=== PATIENT | male | born 1975 | race American Indian/Alaskan Native ===

== ENCOUNTER 2020-12-06 06:32 | Day surgery (SDC) | payer BC, OTHER ==
[2020-12-06] MEDS ORDERED: SODIUM CHLORIDE 0.9% 500 ML 500 ML IV SCH (07:00)
[2020-12-06 07:21] LABS: Basophils # (Auto) 0.1 K/mm3 (0.0-0.1); Basophils % (Auto) 1.2 % (0.0-1.8); Eosinophils # (Auto) 0.1 K/mm3 (0.0-0.4); Eosinophils % (Auto) 1.3 % (0.0-4.3); Hematocrit 42.6 % (35.5-45.6); Hemoglobin 14.6 gm/dl (11.8-15.2); Lymphocytes # (Auto) 1.9 K/mm3 (1.2-5.4); Lymphocytes % (Auto) 18.7 % (13.4-35.0); Mean Corpuscular HGB Conc 34 % (32-34); Mean Corpuscular Volume 77 fl (84-94); Monocytes # (Auto) 0.7 K/mm3 (0.0-0.8); Monocytes % (Auto) 6.6 % (0.0-7.3); Platelet Count 270 K/mm3 (140-440); Red Blood Count 5.52 M/mm3 (3.65-5.03); Red Cell Distribution Width 15.6 % (13.2-15.2)
[2020-12-06 07:30] LABS: INR 0.97 (0.87-1.13)
[2020-12-06 07:31] LABS: Partial Thromboplastin Time 31.4 Sec. (24.2-36.6)
[2020-12-06 07:32] LABS: BUN/Creatinine Ratio 12; Blood Urea Nitrogen 12 mg/dL (9-20); Calcium 9.4 mg/dL (8.4-10.2); Hemolysis Index 1
[2020-12-06] MEDS ORDERED: ASPIRIN EC 325 MG TAB PO SCH (08:00)
[2020-12-06] MEDS ORDERED: HEPARIN/NS 5000 UNIT/500ML 1,000 ML IR ONE (08:27)
[2020-12-06] MEDS ORDERED: MIDAZOLAM 2 MG/2 ML INJ ONE (08:27)
[2020-12-06] MEDS ORDERED: NITROGLYCERIN SYRINGE 3 ML ONE (08:28)
[2020-12-06] MEDS ORDERED: VERAPAMIL 5 MG/2 ML INJ ONE (08:28)
[2020-12-06] MEDS ORDERED: fentaNYL 100 MCG/2 ML INJ ONE (08:28)
[2020-12-06] MEDS ORDERED: HEPARIN 10,000 UNITS/10 ML VIAL ONE (08:29)
[2020-12-06] MEDS ORDERED: LIDOCAINE (1%) 10 MG/1 ML VIAL 20 ML MDV ONE (08:30)
[2020-12-06] MEDS ORDERED: LIDOCAINE (2%) 20 MG/1 ML VIAL 20 ML MDV INFILTRATI ONE (08:44)
--- NOTE | 2020-12-06 08:54 | Short Stay Summary ---
Short Stay Documentation Date of service: 12/06/20 - History Principal diagnosis: Chest Pain H&P: obtained from office Past Medical History: diabetes, hypertension, hyperlipidemia Past Surgical History: no valve replacement, no CABG, no PTCA Social history: no smoking, no alcohol abuse - Allergies and Medications Current Medications: Allergies Penicillins Allergy (Verified 12/06/20 06:53) Shortness of Breath Home Medications Medication Instructions Recorded Confirmed Last Taken Type AtorvaSTATin [Lipitor] 40 mg PO HS 12/06/20 12/06/20 12/04/20 History 40 mg Furosemide [Lasix] 40 mg PO DAILY 12/06/20 12/06/20 12/04/20 History 40 mg Meloxicam [Mobic] 15 mg PO Q48HR 12/06/20 12/06/20 12/03/20 History 15 mg Metformin HCl [Glucophage Xr] 500 mg PO BID 12/06/20 12/06/20 12/04/20 History 500 mg Semaglutide [Ozempic] 1.5 ml SQ QWEEK 12/06/20 12/06/20 11/28/20 History 1.5ml Terbinafine HCl [LamiSIL] 250 mg PO DAILY 12/06/20 12/06/20 12/04/20 History 250 mg amLODIPine 10 mg PO DAILY 12/06/20 12/06/20 12/04/20 History 10 mg carvediloL [Coreg] 12.5 mg PO BID 12/06/20 12/06/20 12/04/20 History 12.5mg lisinopriL [Lisinopril] 10 mg PO DAILY 12/06/20 12/06/20 12/04/20 History 10 mg tiZANidine [Zanaflex 4mg TAB] 4 mg PO DAILY 12/06/20 12/06/20 12/04/20 History 4 mg Active Medications Aspirin (Aspirin Ec 325 Mg Tab) 325 mg PO ONCE IRENE Stop: 12/06/20 16:00 Last Admin: 12/06/20 07:33 Dose: 325 mg Documented by: Sodium Chloride (Nacl 0.9% 500 Ml) 500 mls @ 50 mls/hr IV DIRECT IRENE Stop: 12/06/20 16:59 Last Admin: 12/06/20 07:48 Dose: 50 mls/hr Documented by: - Physical exam General appearance: no acute distress Integumentary: no rash, other (R radial site - clean/dry/intact, no evidence of bleeding or hematoma) HEENT: Atraumatic, EOMI Lungs: Clear to auscultation Heart: Regular rate, Normal S1, Normal S2, No murmurs Gastrointestinal: normal Extremities: no ischemia, pulses intact, No edema Neurological: Normal speech, Normal tone, Sensation intact - Brief post op/procedure progress note Date of procedure: 12/06/20 Pre-op diagnosis: Chest Pain Post-op diagnosis: other (Normal Coronary Arteries) Surgeon: YASH OSORIO Estimated blood loss: minimal Pathology: none Condition: stable - Hospital course Hospital course: Pt presented today for elective LHC, which revealed no angiographic evidence of significant epicardial coronary artery disease, LVEF 55-60%, normal LVEDP, no evidence of , normal root aortography. Pt tolerated procedure well. Currently stable with no complaints. Recommend primary and secondary risk factor modification. Follow-up with Dr. Lopez in 1-2 weeks ([phone]). - Disposition Condition at discharge: Good - Discharge Diagnoses (1) Normal coronary arteries Status: Acute Short Stay Discharge Plan Activity: advance as tolerated Diet: low fat, low cholesterol, diabetic Wound: open to air, keep clean and dry, per your surgeon's advice Special Instructions: hold Metformin (x 48 hrs) Additional Instructions: HOLD METFORMIN FOR 48 HOURS FOLLOWING HEART CATH. RESUME ON 12/08/2020. Follow up with: SONALI LOPEZ MD [Staff Physician] - 14 Days Forms: CardCath PCI D/C Instructions
[2020-12-06] MEDS ORDERED: traMADol 50 MG TAB PO PRN (09:31)
[2020-12-06] MEDS ORDERED: HYDROcodone/ACETAMINOPHEN 5-325 MG TAB PO PRN (10:00)
--- NOTE | 2020-12-06 10:21 | Cardiac Catherization Report ---
DATE OF PROCEDURE: 12/06/2020 REFERRING PHYSICIAN: Dr. Huerta. INDICATIONS FOR PROCEDURE: The patient is a very pleasant 45-year-old -[place] gentleman with multiple risk factors, chest pain with typical and atypical features, abnormal stress test, referred for left heart catheterization. Risks, benefits and alternatives explained at length prior to obtaining informed consent. DESCRIPTION OF PROCEDURE: The patient was brought to blood and plasma laboratory assistant in a postabsorptive state, prepped and draped in sterile fashion. Wellington's test in right hand was normal. A 2 mL of 2% lidocaine used to anesthetize the right wrist. A standard 6-Yi hydrophilic sheath used to cannulate the right radial artery via modified Seldinger technique. All exchanges performed to exchange a J-tip guidewire. JL3.5 catheter used to engage the left main. No dampening or ventricularization. Cineangiography performed in multiple projections. JR4 catheter used to cross the aortic valve under fluoroscopic guidance. Left ventriculography performed in 30-degree LEON, 30-degree MAURITIAN projections via hand injections, catheter flushed. Manual pullback performed with continuous pressure monitoring. Catheter was used to engage the right coronary. No dampening or ventricularization. Cineangiography performed in all projections. Due to unremarkable coronaries, hypertension and recurrent chest pain, root aortography was performed with a pigtail catheter and power injection in the MAURITIAN projection. Next, catheter removed from the body of wire, sheath removed. Manual pressure used to achieve hemostasis. I directly supervised the administration of moderate sedation with fentanyl and Versed from 8:55 a.m. to 9:21 a.m. There were no immediate complications. FINDINGS: The patient remained in normal sinus rhythm throughout the procedure. Aortic pressure is 120/80, LV pressure is 120, LVEDP of 15 mmHg. Left ventriculography reveals normal systolic performance, estimated ejection fraction of 55-60%. No evidence of aortic stenosis. CORONARY ANATOMY: This is a left dominant system. Right coronary small, nondominant, no significant disease. Left main is short. No significant disease. Left main bifurcates into left anterior descending and left circumflex. LAD is a moderate sized vessel, courses anterior intergroove, wraps around the apex. No significant disease. Scattered luminal irregularities. ALEXIS 3 flow. Left circumflex, moderate sized vessel, courses AV groove, gives off a left PDA. No significant disease. ALEXIS 3 flow. Root aortography reveals normal contour, no evidence of dissection or penetrating aortic ulcer. No aortic insufficiency. Normal great vessel anatomy. CONCLUSIONS: 1. No angiographic evidence of significant epicardial coronary artery disease in this left dominant system. 2. Normal left ventricular systolic performance with estimated ejection fraction of 55-60%. 3. Normal LVEDP. 4. No evidence of aortic stenosis. 5. Normal root aortography without evidence of dissection, penetrating aortic ulcer, or aortic insufficiency. The patient is clinically stable, chest pain free. Standard radial care. Results of procedure were explained to the patient. I also called his who is a nurse via telephone and discussed the results with her. The patient will be discharged home to follow up with Dr. Huerta. Aggressive primary and secondary risk factor modification discussed. TID: [id number] RECEIPT: [id number] VINCE/FLORY
[2020-12-06 13:35] VITALS: BP 155/96
--- NOTE | 2020-12-06 14:26 | Electrocardiograph Report ---
[facility] Test Date: 2020-12-06 Test Time: 07:30:45 Pat Name: EDIN GONZALES Department: Room: Gender: M Job Order Clerk: YAMIL : 1975 Requested By: YASH OSORIO Order Number: [id number] Reading MD: Shameka Romano Measurements Intervals [place] Rate: 78 P: 59 [place]: 148 QRS: 5 QRSD: 86 T: -6 QT: 376 QTc: 429 Interpretive Statements Sinus rhythm Anterolateral ST elevation and QS complexes, consider old or recent infarct No previous ECG available for comparison Electronically Signed On 12-06-2020 14:26:13 EDT by Shameka Romano
== END 2020-12-06 06:33 | disposition home or self-care (01) ==
LOC: CATHLABREC 06:32
PROVIDERS: ATTEND Internal Medicine
DX: R07.89 Other chest pain (principal); E78.00 Pure hypercholesterolemia, unspecified; I10 Essential (primary) hypertension; M19.90 Unspecified osteoarthritis, unspecified site; Z88.0 Allergy status to penicillin; Z79.899 Other long term (current) drug therapy; Z82.49 Family history of ischemic heart disease and other diseases of the circulatory system
CPT/HCPCS: 36415; 80048; 85025; 85610; 85730; 93005; 93458; 93567; 99156; 99157; C1894; J1644; J2250; J3010; J7040; Q9967